=== PATIENT | male | born 1995 | race Caucasian/White ===

== ENCOUNTER 2016-08-11 20:37 | Emergency (ER) | payer OTHER, MEDICAID, BC ==
[~2016-08-11 20:37] MED LIST: ADVIL200 M1 PO; ALLERGY RELIEF10 M1 PO; NAPROSYN375 MG PO
== END 2016-08-11 20:50 | disposition home or self-care (01) ==
LOC: CFTX 20:37
DX: K05.10 Chronic gingivitis, plaque induced (principal); K02.9 Dental caries, unspecified; F17.210 Nicotine dependence, cigarettes, uncomplicated; Z88.0 Allergy status to penicillin; Z88.8 Allergy status to other drugs, medicaments and biological substances; Z79.899 Other long term (current) drug therapy
CPT/HCPCS: 99282